=== PATIENT | female | born 1945 | race Caucasian/White ===

== ENCOUNTER → 2018-05-18 | Day surgery (SDC) | payer OTHER ==
--- NOTE | 2018-05-22 11:40 | PATH ---
Surgical Pathology Report Patient Name: NIRAJ ROSALES [facility]. Rec. #: [id number] /Age/Gender: 1945 (Age: 72) / F Account: [id number] Location: [facility] RADIOLOGY U Taken: 05/18/2018 Received: 05/18/2018 Reported: 05/22/2018 Physicians: Era Lei M.D. 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 Electronically Signed Iliana Hansen M.D. Gross Description Received in formalin labeled "left breast biopsy 8:00, 2cmfn," is a 2.2 x 1.8 x 0.2 cm aggregate of cardozo-yellow fragments of fibroadipose tissue admixed with blood clot. The formalin is filtered and the specimen is entirely submitted in one cassette. Time to formalin fixation: 4 minutes Total formalin fixation time: Approximately 7 hours. 05/18/2018 saudi05/18/2018
== END | disposition home or self-care (01) ==
LOC: FRADUS-SUR 11:26 → EDSTATUS 11:30
PROVIDERS: ATTEND Surgery Surgical Oncology
PROC: 0HBU3ZX Excision of Left Breast, Percutaneous Approach, Diagnostic (ICD-10-PCS; principal; 2018-05-18)
DX: D24.2 Benign neoplasm of left breast (principal); N63.24 Unspecified lump in the left breast, lower inner quadrant
CPT/HCPCS: 19083; 77065-TC-50; 87899; 88305-TC; A4648